=== PATIENT | female | born 1970 | race Caucasian/White ===

== ENCOUNTER 2017-11-17 16:04 | Emergency (ER) | payer MEDICAID ==
[2017-11-17 19:41] LABS: URINE BLOOD (Dip) POC Trace-lysed (NEGATIVE); URINE GLUCOSE (Dip) POC Negative (NEGATIVE); URINE KETONES (Dip) POC Negative (NEGATIVE); URINE LEUKOCYTE EST (Dip) POC Negative (NEGATIVE); URINE NITRITE (Dip) POC Negative (NEGATIVE); URINE TOTAL PROTEIN POC Negative (NEGATIVE)
== END 2017-11-17 20:12 | disposition home or self-care (01) ==
LOC: FTE 16:04
DX: J32.9 Chronic sinusitis, unspecified (principal)
CPT/HCPCS: 81003; 99284